=== PATIENT | male | born 1930 | race Caucasian/White ===

== ENCOUNTER → 2018-10-05 | Outpatient (CLI) | payer MEDICARE, OTHER ==
[~2018-10-05] MED LIST: AMLO10TA4 PO; ASPI-496 PO; ASPI-515 PO; ATEN25TA PO; CALCIUM PO; CHOL200052 PO; ESOM40CA PO; MULT-642 PO; OLME1TAB25 PO; OXYC-302 PO; SIMV40TA PO
== END | disposition home or self-care (01) ==
LOC: CVU 09:58
PROVIDERS: ATTEND Internal Medicine Cardiovascular Disease
DX: I65.23 Occlusion and stenosis of bilateral carotid arteries (principal); E11.9 Type 2 diabetes mellitus without complications; E78.2 Mixed hyperlipidemia; I10 Essential (primary) hypertension; Z87.891 Personal history of nicotine dependence
CPT/HCPCS: 93880